=== PATIENT | female | born 1935 | race Caucasian/White ===

== ENCOUNTER 2020-05-07 12:23 | Emergency (ER) | payer MEDICARE, SELFPAY ==
[2020-05-07 12:24] VITALS: BP 136/46; PULSE 63; RESP 18; TEMP 36.4; O2SAT 100; BMI 26.9
--- NOTE | 2020-05-07 13:00 | EKG12_ITS ---
Test Reason : MENTAL HEALTH Blood Pressure : / mmHG Vent. Rate : 060 BPM Atrial Rate : 060 BPM P-R Int : 200 ms QRS Dur : 084 ms QT Int : 440 ms P-R-T Axes : 013 -35 006 degrees QTc Int : 440 ms Normal sinus rhythm Left axis deviation Abnormal ECG Confirmed by CITLALY ARSHAD, SARAH ([id number]), editor school photograph [employer]FORT FRIEDMAN ([id number]) on 05/10/2020 1:00:44 PM Referred By: TANK Confirmed By:SARAH BOUCHER MD
--- NOTE | 2020-05-07 13:44 | ED.DCSUM_ITS ---
History of Present Illness Chief Complaint: Suicidal Informant: Patient, Family Narrative: Patient is brought to the emergency room out of concern for suicidal behavior. Son states that his mother has been in a multi year dispute regarding her property and the business plastic press molder who has the property next to her. This is caused overwhelming frustration for the patient. Apparently she has been stating that she would rather just . Reportedly she went to [facility] to purchase a gun but did not. Son states that he has spoken with her and they have agreed that she is going to end up selling the home and moving away from the toxic relationship. In my brief conversation with her I would say this seems to provide her with some hope and is expressing some forward thinking. She is otherwise a very healthy individual. She sees her primary care physician about 1 time per year. No new medications. There is been no report of any dementia- like behavior or sundowning. Patient denies any weight loss. She states she has been able to sleep at night. She does states that the situation with her neighbor is quite stressful causes a deal of anxiety. She states that from the house that she is lived in for decades she can see the house across the property that she was born. She has anxiety about leaving this situation. Past Medical History - Allergies and Home Meds Allergies/Adverse Reactions: Allergies No Known Allergies Allergy (Verified 05/07/20 12:26) Primary Care Physician: Mario Wynne [Primary Care Provider] - As soon as possible Prior records reviewed: Yes Past Medical History: None Surgical History: noncontributory Lives: Alone Alcohol: None Drugs: None Review of Systems General: Denies: Chills, Fever, Sweats Eyes: Denies: Visual changes - bilaterally, Diplopia ENT: Denies: Rhinorrhea, Sore throat Cardiovascular: Denies: Chest pain, Palpitations Respiratory: Denies: Dyspnea, Cough, Dyspnea on exertion Gastrointestinal: Denies: Abdominal pain, Nausea, Vomiting, Diarrhea, Melena, Hematochezia Genitourinary: Denies: Dysuria, Hematuria, Frequency Musculoskeletal: Denies: Back pain, Extremity Pain Skin: Denies: Rash, Wounds Neurological: Denies: Headache, Weakness, Numbness Psych: Reports: Depression, Anxiety, Suicidal ideations Physical Exam Vital Signs/Narrative: Vital Signs Temp Pulse Resp BP Pulse Ox 05/07/20 12:24 97.6 F L 63 18 136/46 H 100 Inital Vital Signs reviewed: Yes General: Well nourished, Well developed, No Acute Distress Head: Normocephalic, Atraumatic Eyes: Perrl, EOMI ENT: Moist mucous membranes, No rhinorrhea Neck: Supple, Nontender Cardiovascular: Regular rate, Regular rhythm, No murmurs Respiratory: No distress, CTA bilaterally, Chest nontender Abdomen: Soft, Nontender, Nondistended, Normal bowel sounds Back: Nontender, Normal Inspection Extremities: Nontender, No edema Skin: Normal color, No rash Neurological: Alert, Oriented x3, Cranial nerves II-XII grossly intact, Normal Strength, Normal Sensation Psychological: Normal affect, Normal Mood, - - Patient is smiling. She makes eye contact. She readily answers questions. She has forward thinking thoughts. Diagnostic/Tx/Re-eval Laboratory Last Values WBC 6.3 K/mm3 (4.4-11.0) 05/07/20 13:38 RBC 4.74 M/mm3 (4.2-5.4) 05/07/20 13:38 Hgb 14.1 g/dL (12.0-15.0) 05/07/20 13:38 Hct 44.1 % (37-47) 05/07/20 13:38 MCV 93.0 fL (81-99) 05/07/20 13:38 MCH 29.7 pg (27.0-32.0) 05/07/20 13:38 MCHC 32.0 g/dL (32-36) 05/07/20 13:38 RDW Std Deviation 43.8 fl (35.1-43.9) 05/07/20 13:38 RDW Coeff of Jeremy 12.7 % (11.6-14.6) 05/07/20 13:38 Plt Count 203 K/mm3 (150-450) 05/07/20 13:38 MPV 10.7 fl (6.2-12.0) 05/07/20 13:38 Immature Gran % (Auto) 0.300 % (0.0-0.9) 05/07/20 13:38 Neut % (Auto) 57.7 % (47-70) 05/07/20 13:38 Lymph % (Auto) 30.7 % (19-41) 05/07/20 13:38 [place] % (Auto) 9.4 % (0-10) 05/07/20 13:38 Eos % (Auto) 1.3 % (0-5) 05/07/20 13:38 Baso % (Auto) 0.6 % (0-1) 05/07/20 13:38 Absolute Neuts (auto) 3.6 X10^3/uL (2.0-7.7) 05/07/20 13:38 Absolute Lymphs (auto) 1.93 X10^3/uL (0.83-4.51) 05/07/20 13:38 Nucleated RBC % 0 % (0-5) 05/07/20 13:38 Sodium 140 mmol/L (136-145) 05/07/20 13:38 Potassium 4.2 mmol/L (3.5-5.1) 05/07/20 13:38 Chloride 105 mmol/L (98-107) 05/07/20 13:38 Carbon Dioxide 31.0 mmol/L (21.0-32.0) 05/07/20 13:38 Anion Gap 4 (5-15) L 05/07/20 13:38 BUN 20 mg/dL (7-18) H 05/07/20 13:38 Creatinine 1.05 mg/dL (0.55-1.02) H 05/07/20 13:38 Estim Creat Clear Calc 32.67 ml/min 05/07/20 13:38 Est GFR (MDRD) Af Amer 65 mL/min (>60) 05/07/20 13:38 Est GFR (MDRD) Non-Af 53 mL/min (>60) L 05/07/20 13:38 BUN/Creatinine Ratio 19.0 RATIO (10-20) 05/07/20 13:38 Glucose 93 mg/dL (74-106) 05/07/20 13:38 Calcium 9.1 mg/dL (8.5-10.1) 05/07/20 13:38 Total Bilirubin 0.70 mg/dL (0.20-1.00) 05/07/20 13:38 Direct Bilirubin 0.19 mg/dL (0.00-0.30) 05/07/20 13:38 AST 22 U/L (15-37) 05/07/20 13:38 ALT 15 U/L (13-56) 05/07/20 13:38 Alkaline Phosphatase 102 U/L (45-117) 05/07/20 13:38 Troponin I < 0.015 ng/mL (<0.045) 05/07/20 13:38 Total Protein 8.1 g/dL (6.4-8.2) 05/07/20 13:38 Albumin 3.9 g/dL (3.2-5.0) 05/07/20 13:38 Globulin 4.2 g/dL (2.2-4.2) 05/07/20 13:38 TSH 14.70 uIU/mL (0.358-3.74) H 05/07/20 13:38 Urine Opiates Screen NEGATIVE (< 300 ng/mL) 05/07/20 13:50 Urine Methadone Screen NEGATIVE (< 300 ng/mL) 05/07/20 13:50 Ur Barbiturates Screen NEGATIVE (< 200 ng/mL) 05/07/20 13:50 Ur Phencyclidine Scrn NEGATIVE (< 25 ng/mL) 05/07/20 13:50 Ur Amphetamines Screen NEGATIVE (<1000 ng/mL) 05/07/20 13:50 U Methamphetamin-MDMA NEGATIVE (< 500 ng/mL) 05/07/20 13:50 U Benzodiazepines Scrn NEGATIVE (< 200 ng/mL) 05/07/20 13:50 Urine Cocaine Screen NEGATIVE (< 300 ng/mL) 05/07/20 13:50 U Cannabinoids Screen NEGATIVE (< 50 ng/mL) 05/07/20 13:50 Ur Drug Screen Comment 05/07/20 13:50 - Medical Decision Making Patient was interviewed by myself and social work. I do not think it point she is suicidal. She is actually saying she is not suicidal now. I think this is a lot for her to handle. Her son is going to look into moving her closer to where he is. We will touch base with her primary care doctor and review the labs including the significantly elevated TSH. They were given counseling resources. Patient and her son do not wish this day to be talk to Dr. Wynne or see if any additional test need to be run. They would just like to leave. She is not suicidal I cannot hold her against her well I was just trying to save her an extra trip to lab since she was already at the hospital setting. ED Disposition - Plan for ED Patient: Disposition: Home or Assisted Living Diagnosis: Depression, Elevated TSH Instructions: CONTRACT, No Harm, ED Depression, ED Hypothyroidism Referrals: Mario Wynne [Primary Care Provider] - As soon as possible
[2020-05-07 13:54] LABS: Absolute Lymphocyte Count 1.93 X10^3/uL (0.83-4.51); Absolute Neutrophil Count 3.6 X10^3/uL (2.0-7.7); Basophil# 0.04 X10^3/uL; Basophil% 0.6 % (0-1); Eosinophil# 0.08 X10^3/uL; Eosinophils% 1.3 % (0-5); Hematocrit 44.1 % (37-47); Hemoglobin 14.1 g/dL (12.0-15.0); Lymphocyte # 1.93 X10^3/ul (4.0); Lymphocyte % 30.7 % (19-41); Mean Corpuscular Hgb 29.7 pg (27.0-32.0); Mean Platelet Vol. 10.7 fl (6.2-12.0); Monocyte# 0.59 X10^3/uL; Monocyte% 9.4 % (0-10); NRBC Flagged by Analyzer 0 % (0-5); Neutrophil # 3.62 X10^3/uL (2.7-7.7); Neutrophil % 57.7 % (47-70); Platelet Count 203 K/mm3 (150-450); RBC Distribution Width CV 12.7 % (11.6-14.6); RBC Distribution Width SD 43.8 fl (35.1-43.9); Red Blood Count 4.74 M/mm3 (4.2-5.4); White Blood Count 6.3 K/mm3 (4.4-11.0)
[2020-05-07 14:21] LABS: AST(SGOT) 22 U/L (15-37); Alanine Aminotransfer ALT/SGPT 15 U/L (13-56); Albumin, Serum 3.9 g/dL (3.2-5.0); Alkaline Phosphatase 102 U/L (45-117); Anion Gap 4 (5-15); BUN 20 mg/dL (7-18); Bilirubin, Direct 0.19 mg/dL (0.00-0.30); Calcium,Total 9.1 mg/dL (8.5-10.1); Chloride 105 mmol/L (98-107); Creatinine, Serum 1.05 mg/dL (0.55-1.02); EST Glomerular Filtration Rate 53 mL/min (>60); Est Glom Filt Rate - Afr Amer 65 mL/min (>60); Estimated Creatinine Clearance 32.67 ml/min; Globulin 4.2 g/dL (2.2-4.2); Glucose 93 mg/dL (74-106); Potassium 4.2 mmol/L (3.5-5.1); Protein, Total 8.1 g/dL (6.4-8.2); Sodium Level 140 mmol/L (136-145)
[2020-05-07 14:27] LABS: Amphetamine Urine VISTA NEGATIVE (<1000 ng/mL); Barbiturate Urine VISTA NEGATIVE (< 200 ng/mL); Benzodiazepine Urine VISTA NEGATIVE (< 200 ng/mL); Cocaine Urine VISTA NEGATIVE (< 300 ng/mL); Ecstacy Urine VISTA NEGATIVE (< 500 ng/mL); Methadone Urine VISTA NEGATIVE (< 300 ng/mL); PCP Urine VISTA NEGATIVE (< 25 ng/mL); THC Urine VISTA NEGATIVE (< 50 ng/mL); Vista UDS pH Range 5
--- NOTE | 2020-05-07 14:30 | CM.ED ---
Social Work Consult: Mental Health Informant: Dr. Vivas Chief Complaint: Patient with thoughts of suicide in relation to stress with neighbors. Marital/Social History: , patient spouse 20 years ago. Patient has two adult sons that live outside of the home and area. Living Situation: Lives alone. Currently drives self and is independent for all ADL's and IADL's. Patient reports to walk 30mins daily. Support/Resources: No current community resources. Education/Employment: Retired. No concerns with comprehension or understanding. Mental Health Treatment/History: No mental health history. No history of inpatient psychiatric placement or counseling services. Abuse Issues: Denies Substance Abuse/use: Denies Triggers/Stressors: Patient is current dispute with neighbor over land. Patient state He is encroaching on my land. Coping Skills: Walking, reading, quilting club. Risk to Self/Others: Denies active suicidal thoughts/plans/intents. Patient reports to have had suicidal thoughts starting a few days ago. Patient admits to going to [employer] a week ago to purchase other things and to have looked at the guns. Patient states to have thought that patient could shoot myself. Patient states to be feeling better now. Patient states to want to live and to be looking forward to transitioning to other housing closer to patient son's home. Patient denies any suicidal thoughts prior to the past few days. Patient denies any attempts to complete suicide. Patient denies homicidal thoughts/plans/intents. Mental Status Exam: A&Ox3 Appearance/General Behavior: Appropriate. Pleasant. Calm. Mood/Affect: Pleasant. Communication Pattern: Responds to questions. Thought Process: Denies any A/V hallucinations or paranoia. Judgement: Fair. Assessment: Met with patient in room. Introduced self and vineyard worker role. Patient agreeable to speaking with this vineyard worker. Patient is inquiring as to when patient is able to leave as I am doing fine. This vineyard worker educating patient on emergency room plan of care and that the next step is for this vineyard worker to speak with patient. Patient open to assessment. Patient reports to have been speaking with patient son's on selling property and moving into independent living. Patient states that main stressor is the neighbor. Patient states to have no concerns for the community and does not feel at risk to self. Patient admits to getting overwhelmed with dealing with land dispute with neighbor. Patient states to have spoken with the authorities and the authorities are siding with the neighbor. Patient states to be frustrated with current situation but to believe that patient will be fine. Patient is open to this vineyard worker speaking with patient sonErendira that brought patient to the emergency room today. Patient denies having access to a firearm in the home. Patient counseled on lethal means. This vineyard worker speaking with Erendira outside patient room. Erendira states to have been concerned about patient until today when speaking about plan to get out of the toxic environment. Erendira states to feel comfortable with plan for patient to return to the community. Carlosmikey state that patient will have someone staying with patient in the home this evening and then plan will be for patient to go with Erendira to Erendira's home to start working on establishing group home. Erendira is confirming that there is a dispute with land with patient neighbor and denies any concerns for patient cognition or paranoia in patient. Erendira states to feel that patient is safe to return to the community and that patient has just been overwhelmed. Erendira aware of crisis hotline and local counseling resources. Erendira counseled on lethal means and reports that patient does not have access to a gun. This vineyard worker collaborating with Dr. Vivas. Plan is to discharge to the community. This vineyard worker providing patient with local mental health resources and crisis hotline. Patient is declining further mental health follow up with the thought that patient current stress is situational. A conversation was had about how patient might need mental health services to work through situation stress, patient declines this vineyard worker setting up services for patient but is open to receiving information, information provided. PLAN: Discharge to home in the care of patient sonErendira. Family to stay with patient this evening. Paul EDGE, HORACIO
[2020-05-07 14:38] LABS: Alcohol, Blood (Medical)-Serum < 3.0 mg/dL
[2020-05-07 14:39] LABS: Mucous, Urine 0 SEEN /hpf (<or=2+)
[2020-05-07 14:42] LABS: Color, Urine Yellow (Yellow); Glucose, Dipstick Normal (Normal); Ketone-Dipstick 15 mg/dl (Negative); Leukocyte Esterase-Dipstick 500 /ul (Negative); Nitrite-Dipstick Negative (Negative); Occult Blood-Urine 10 /ul (Negative); Protein-Dipstick 30 mg/dl (Negative); Urine Bilirubin Dipstick Negative (Negative); Urine Clarity Sl. Cloudy (Clear); Urine Urobilinogen Normal (Normal)
[2020-05-07 14:53] LABS: Bacteria 1+ /hpf (None Seen); Red Blood Cells-Urine 0-5 SEEN /hpf (0-5); Squamous Epithelial Cells - UA 0-5 SEEN /hpf (5-10); White Blood Cells 25-50 SEEN /hpf (0-5)
[2020-05-07 15:35] LABS: Free T3 2.1 pg/mL (2.18-3.98); T4 Free Direct 0.74 ng/dL (0.76-1.46)
== END 2020-05-07 15:11 | disposition home or self-care (01) ==
PROVIDERS: Emergency Provider Emergency Medicine; PCP Family Medicine
DX: F32.9 Major depressive disorder, single episode, unspecified (principal)
CPT/HCPCS: 80048; 80076; 80307; 80320; 81001; 84439; 84443; 84481; 84484; 85025; 93005; 99283; G0480